=== PATIENT | female | born 1955 | race Caucasian/White ===

== ENCOUNTER 2017-09-05 10:38 | Outpatient (CLI) | payer BC, OTHER ==
--- NOTE | 2017-09-05 13:14 | MMO ---
BILATERAL SCREENING MAMMOGRAMS: Date: 09/05/17 HISTORY: 62-year-old female patient presenting for screening mammography. This patient's mammogram was interpreted with the assistance of computer-aided detection. COMPARISON: 08/10/16, 07/29/15, 07/14/14, and 07/01/13. FINDINGS: Scattered fibroglandular densities are seen in each breast. There is a stable benign-appearing calci fication seen in the left breast. No dominant mass or suspicious grouping of microcalcifications are seen in either breast. IMPRESSION: BIRADS 2: Benign Finding(s) Routine annual mammographic screening is recommended. POS: DAWIT
== END 2017-09-05 10:39 | disposition home or self-care (01) ==
LOC: SCSMAMMO 10:38
PROVIDERS: ATTEND Obstetrics & Gynecology
DX: Z12.31 Encounter for screening mammogram for malignant neoplasm of breast (principal)
CPT/HCPCS: 77067

== ENCOUNTER 2017-09-05 14:33 | Outpatient (CLI) | payer BC | END 2017-09-05 14:34 | disposition home or self-care (01) | LOC: BICMAMMO 14:33 | PROVIDERS: ATTEND Obstetrics & Gynecology | DX: Z13.820 Encounter for screening for osteoporosis (principal) | CPT/HCPCS: 77080 ==

== ENCOUNTER 2018-09-05 10:12 | Outpatient (CLI) | payer BC ==
--- NOTE | 2018-09-05 11:10 | MMO ---
BILATERAL SCREENING MAMMOGRAM: DATE: 09/05/18 HISTORY: 63-year-old female for screening mammography. COMPARISON: 09/05/17, 08/10/16. FINDINGS: Bilateral MLO and CC views of the breasts show predominantly fatty replaced breast parenchyma. A mckenna gn-appearing calcification is seen in the subareolar region of the left breast. There is no evidence of suspicious mass, suspicious cluster of microcalcifications, or area of architectural distortion. Interpretation of this mammogram was performed with the assistance of computer-aided detection. IMPRESSION: BIRADS 2: Benign Finding(s) Annual screening mammography is recommended. POS: DAWIT
== END 2018-09-05 10:13 | disposition home or self-care (01) ==
LOC: SCSMAMMO 10:12
PROVIDERS: ATTEND Obstetrics & Gynecology
DX: Z12.31 Encounter for screening mammogram for malignant neoplasm of breast (principal)
CPT/HCPCS: 77067

== ENCOUNTER 2020-07-31 08:18 | Inpatient (IN) | payer BC ==
[2020-07-31] MEDS ORDERED: Ondansetron PF 4 MG/2 ML Vial ONE (08:55)
[2020-07-31] MEDS ORDERED: Morphine 4 MG/ML VIAL ONE (08:55)
[2020-07-31 09:03] LABS: #Lymphocytes 1.4 thou/uL (1.20-3.40); #Neutrophils 11.4 thou/uL (1.40-6.50); %Basophils 0.2 % (0.0-1.0); %Neutrophils 82.8 % (42.0-75.0); Hemoglobin 13.1 g/dL (12.0-16.0); Mean Corpuscular Hemoglobin 29.6 pg (27.0-31.0); Mean Corpuscular Volume 87.1 fL (78.0-98.0); Mean Platelet Volume 7.6 fL (7.4-10.4); Platelet Count 275 thou/uL (130-400); Red Blood Cell (RBC) Count 4.43 mill/uL (4.20-5.40); White Blood Cell (WBC) Count 13.8 thou/uL (4.8-10.8)
[2020-07-31 09:25] LABS: ALT (SGPT) 7 U/L (8-55); AST (SGOT) 13 U/L (5-34); Albumin 4.1 g/dL (3.4-4.8); Alkaline Phosphatase 114 U/L (40-110); Anion Gap 16 mmol/L (10-20); BUN (Urea Nitrogen) 12 mg/dL (9.8-20.1); Bilirubin, Total 1.1 mg/dL (0.2-1.2); Calc. Creatinine Clearance 0 mL/min (70-130); Calcium 9.4 mg/dL (7.8-10.44); Carbon Dioxide 25 mmol/L (23-31); Chloride 102 mmol/L (98-107); Glucose 135 mg/dL (80-115); Lipase 11 U/L (8-78); Potassium 3.6 mmol/L (3.5-5.1); Protein, Total 7.1 g/dL (6.0-8.3); Sodium 139 mmol/L (136-145)
[2020-07-31 09:40] LABS: Bacteria/HPF None Seen HPF (None Seen); Bilirubin Negative (Negative); Blood, Urine Trace (Negative); Clarity Clear (Clear); Glucose, Urine (Dipstick) Normal (Negative); Ketone, Urine Trace mg/dL (Negative); Leukocyte Negative Leu/uL (Negative); Nitrite Negative (Negative); Protein, Urine (Dipstick) 30 mg/dL (Neg-Trace); RBC/HPF 0-3 HPF (0-3); Specific Gravity, Urine 1.032 (1.002-1.036); Squamous Epithelial 0-3 HPF (0-3); Urobilinogen Normal mg/dL (Less than 2); pH, Urine 5.5 (5.0-9.0)
[2020-07-31] MEDS ORDERED: Piperacillin/Tazobactam 4.5 GM VIAL ONE (09:52)
[2020-07-31] MEDS ORDERED: Sodium Chloride 0.9% 100 ML ONE (09:52)
--- NOTE | 2020-07-31 10:11 | ULT ---
RIGHT UPPER QUADRANT ABDOMINAL ULTRASOUND: Date: 07/31/2020 COMPARISON: None. HISTORY: Abdominal pain. TECHNIQUE: Multiplanar Beckwith scale and color Doppler images were obtained in a right upper quadrant abdominal ult rasound. FINDINGS: The liver is normal in echogenicity without focal lesions or intrahepatic ductal dilatation. There is a large nonmobile gallstone in the gallbladder neck. The gallbladder is distended. No gallbladder wa ll thickening or pericholecystic fluid seen. The common bile duct is normal measuring 2.0 mm. The pancreatic duct is prominent measuring 5.0 mm. No obvious pancreatic mass is seen. The right kidn ey is normal in echogenicity without hydronephrosis or calculus and measures 10.3 cm in length. IMPRESSION: 1. Cholelithiasis. 2. Nonspecific prominence in the pancreatic duct. POS: EAA
[2020-07-31] MEDS ORDERED: Promethazine HCl 25 MG/ML VIAL IM PRN (11:24)
[2020-07-31] MEDS ORDERED: Calcium Carbonate 500 MG ChewTAB PO PRN (11:24)
[2020-07-31] MEDS ORDERED: Dextrose 5% in Water 1,000 ML IV PRN (11:24)
[2020-07-31] MEDS ORDERED: Mag-Al 1200 mg/1200 mg/30 ML UDCUP PO PRN (11:24)
[2020-07-31] MEDS ORDERED: hydrALAZINE 20 MG/ML VIAL SLOW IVP PRN (11:24)
[2020-07-31] MEDS ORDERED: Ondansetron PF 4 MG/2 ML Vial IVP PRN (11:24)
[2020-07-31] MEDS ORDERED: Morphine 4 MG/ML VIAL SLOW IVP PRN (11:24)
[2020-07-31] MEDS ORDERED: Dextrose 50% Abboject 50 ML SYRINGE SLOW IVP PRN (11:24)
[2020-07-31] MEDS ORDERED: Albuterol 200 PUFF (6.7GM INHALER) INH PRN (11:35)
[2020-07-31 12:02] LABS: Lactic Acid 1.5 mmol/L (0.5-2.2)
--- NOTE | 2020-07-31 12:02 | HP ---
CHIEF COMPLAINT: Right upper quadrant abdominal pain. HISTORY: A 65-year-old female with a 3-week history of right upper quadrant pain, intermittent at that time, worse after eating spicy fatty food. Yesterday afternoon after lunch, she developed severe episode of this pain, which is persisted, associated with nausea and dry heaves as well as some fever. PAST MEDICAL HISTORY: Left bundle branch block, history of obesity. PAST SURGICAL HISTORY: She had a sleeve gastrectomy 5 years ago, hiatal hernia repair at that time, tonsil and adenoidectomy, and a forehead lift. MEDICATIONS: She is on no medications. ALLERGIES: NO KNOWN DRUG ALLERGIES. SOCIAL HISTORY: She is . No tobacco. Rare alcohol. FAMILY HISTORY: Diabetes, heart disease, and strokes. PHYSICAL EXAMINATION: VITAL SIGNS: She is afebrile. Pulse 85, blood pressure 115/52. GENERAL: She is awake, alert, in no apparent distress. HEENT: No jaundice. LUNGS: Clear. HEART: Regular rate and rhythm. ABDOMEN: Soft, very tender in the right upper quadrant. She has some well-healed laparoscopic scars. EXTREMITIES: Unremarkable. LABORATORY DATA: White count is 13.8, hemoglobin and hematocrit are 13 and 38, and platelet count 275. Electrolytes are fine. Alkaline phosphatase is little elevated at 114. Ultrasound shows large stone impacted in the gallbladder neck, normal common bile duct. ASSESSMENT: Severe biliary colic. PLAN: Admit. Laparoscopic cholecystectomy in the morning. We will check COVID test. Job ID: [id number]
[2020-07-31 12:36] LABS: SARS-CoV-2 NAA Rapid Test Not Detected (NotDetected)
[2020-07-31] MEDS: D5 1/2 NS w/20 mEq KCL 1,000 ML IV SCH (14:32)
[2020-07-31 14:40] VITALS: BMI 32.1
[2020-07-31] MEDS: Piperacillin/Tazobactam 3.375 GM in Sodium Chloride 0.9% 100 ML IVPB SCH ×2 (17:06→22:43)
[2020-07-31] MEDS ORDERED: Acetaminophen 325 MG TAB PO PRN (19:49)
[2020-07-31] MEDS: Morphine 2 MG/ML VIAL SLOW IVP PRN (19:58)
[2020-07-31] MEDS: Famotidine/PF 20 mg/2ml Vial SLOW IVP SCH (19:59)
[2020-07-31] MEDS: Famotidine 20 MG TAB PO SCH (22:43)
[2020-08-01] MEDS: Morphine 2 MG/ML VIAL SLOW IVP PRN ×2 (01:00→05:59)
[2020-08-01] MEDS: Piperacillin/Tazobactam 3.375 GM in Sodium Chloride 0.9% 100 ML IVPB SCH ×4 (03:34→22:34)
[2020-08-01] MEDS: D5 1/2 NS w/20 mEq KCL 1,000 ML IV SCH ×2 (03:40→21:19)
[2020-08-01 06:03] LABS: #Lymphocytes 2.1 thou/uL (1.20-3.40); #Monocytes 1.2 thou/uL (0.11-0.59); #Neutrophils 14.2 thou/uL (1.40-6.50); %Basophils 0.1 % (0.0-1.0); %Eosinophils 0.1 % (0.0-10.0); %Lymphocytes 12.1 % (21.0-51.0); %Neutrophils 80.6 % (42.0-75.0); Hemoglobin 12.2 g/dL (12.0-16.0); Mean Corpuscular Hemoglobin 29.3 pg (27.0-31.0); Mean Platelet Volume 7.6 fL (7.4-10.4); Platelet Count 244 thou/uL (130-400); RBC Distribution Width 12.1 % (11.5-14.5); Red Blood Cell (RBC) Count 4.16 mill/uL (4.20-5.40); White Blood Cell (WBC) Count 17.6 thou/uL (4.8-10.8)
[2020-08-01 06:24] LABS: ALT (SGPT) 229 U/L (8-55); AST (SGOT) 182 U/L (5-34); Albumin 3.6 g/dL (3.4-4.8); Alkaline Phosphatase 156 U/L (40-110); Anion Gap 15 mmol/L (10-20); BUN (Urea Nitrogen) 13 mg/dL (9.8-20.1); Bilirubin, Total 3.1 mg/dL (0.2-1.2); Calc. Creatinine Clearance 99 mL/min (70-130); Calcium 8.8 mg/dL (7.8-10.44); Carbon Dioxide 23 mmol/L (23-31); Chloride 104 mmol/L (98-107); Globulin 2.8 g/dL (2.4-3.5); Glucose 121 mg/dL (80-115); Lipase 10 U/L (8-78); Potassium 3.8 mmol/L (3.5-5.1); Protein, Total 6.4 g/dL (6.0-8.3); Sodium 138 mmol/L (136-145)
[2020-08-01] MEDS ORDERED: Fentanyl 100 MCG/2 ML VIAL ONE ×2 (09:42→12:41)
[2020-08-01] MEDS ORDERED: Sodium Chloride 0.9% 100 ML ONE (09:43)
[2020-08-01] MEDS ORDERED: Piperacillin/Tazobactam 3.375 GM VIAL ONE (09:43)
[2020-08-01] MEDS ORDERED: Bupivacaine 0.25% HCL 30 ML VIAL ONE (11:42)
[2020-08-01] MEDS ORDERED: Lidocaine 1% w/Epinephrine 1:100K 20 ML VIAL ONE (11:42)
[2020-08-01] MEDS ORDERED: Midazolam HCl 2 mg/2 ml Vial ONE (12:41)
[2020-08-01] MEDS ORDERED: Iothalamate Meglumine 60% 50 ML VIAL FS ONE (13:28)
--- NOTE | 2020-08-01 13:58 | RAD ---
OPERATIVE CHOLANGIOGRAM: 08/01/20 A single fluoroscopic image is presented from the OR. INDICATIONS: Cholangiogram during laparoscopic cholecystectomy. FINDINGS/IMPRESSION: This single view shows opacification of the common bile duct. No filling defect identified. POS: AGW
[2020-08-01] MEDS ORDERED: Calcium Carbonate 500 MG ChewTAB PO PRN (14:15)
[2020-08-01] MEDS ORDERED: Promethazine HCl 25 MG/ML VIAL IM PRN ×2 (14:15→14:28)
[2020-08-01] MEDS ORDERED: Dextrose 50% Abboject 50 ML SYRINGE SLOW IVP PRN (14:15)
[2020-08-01] MEDS ORDERED: Morphine 2 MG/ML VIAL SLOW IVP PRN (14:15)
[2020-08-01] MEDS ORDERED: Dextrose 5% in Water 1,000 ML IV PRN (14:15)
[2020-08-01] MEDS ORDERED: hydrALAZINE 20 MG/ML VIAL SLOW IVP PRN (14:15)
[2020-08-01] MEDS ORDERED: Morphine 4 MG/ML VIAL SLOW IVP PRN (14:15)
[2020-08-01] MEDS ORDERED: Ondansetron PF 4 MG/2 ML Vial IVP PRN (14:15)
[2020-08-01] MEDS ORDERED: Mag-Al 1200 mg/1200 mg/30 ML UDCUP PO PRN (14:15)
[2020-08-01] MEDS ORDERED: HYDROcodone/Acetaminophen 10/325 mg Tablet PO PRN ×2 (14:15)
[2020-08-01] MEDS ORDERED: SUGAMMADEX SODIUM 200 MG/2 ML VIAL ONE (14:16)
[2020-08-01] MEDS ORDERED: Ondansetron HCl/PF 4 MG/2 ML Vial IVP PRN (14:28)
[2020-08-01] MEDS ORDERED: HYDROmorphone 2 MG/ML VIAL SLOW IVP PRN (14:28)
[2020-08-01] MEDS ORDERED: Morphine Sulfate 2 MG/ML SYRINGE SLOW IVP PRN (14:28)
[2020-08-01] MEDS ORDERED: Meperidine HCl/PF 25 MG/ML VIAL SLOW IVP PRN (14:28)
[2020-08-01] MEDS ORDERED: PACU-Morphine 4MG/ML VIAL SLOW IVP PRN (14:28)
--- NOTE | 2020-08-01 14:36 | OP ---
DATE OF PROCEDURE: 08/01/2020 PREOPERATIVE DIAGNOSIS: Acute cholecystitis. PROCEDURE PERFORMED: Laparoscopic cholecystectomy with intraoperative cholangiogram. INDICATIONS: This is a 65-year-old female with severe right upper quadrant pain radiating to the back, went to the emergency room. CT showed distended gallbladder with impacted gallstone in her neck consistent with acute cholecystitis. FINDINGS: Gangrenous gallbladder containing pus, somewhat necrotic. Cholangiogram was negative. DESCRIPTION OF PROCEDURE: After informed consent was obtained, the patient was taken to the operating room and given general endotracheal anesthesia, placed in the supine position. Abdomen was prepped and draped in usual fashion. Local anesthesia was infiltrated subcutaneously and deep. A subumbilical incision was performed. Subcu divided sharply. The fascia was grasped and 2 stay sutures of 0 Vicryl placed through each side of midline. Midline incised. Digital palpation revealed no local adhesions. A blunt 12 mm trocar inserted. Pneumoperitoneum was created to a pressure of 15 mmHg. A 0-degree laparoscope inserted under direct vision, three 5-mm ports were placed subcostally. The gallbladder was encased with omentum. This was taken down bluntly to reveal a very inflamed gallbladder that was distended. The aspirating needle was inserted and 90 mL of purulent fluid removed. This was sent for culture and sensitivity. The gallbladder grasped, advanced superiorly. The peritoneum lysed distally to expose the cystic duct and artery. A clip was placed on the cystic duct at the gallbladder and an incision made in the cystic duct. An Arrow cholangiocatheter inserted. An intraoperative cholangiogram was performed utilizing fluoroscopy showing free flow into the duodenum and no filling defects. The duct was triply ligated with hemoclips and divided. The artery was dissected out, triply ligated and divided. The gallbladder removed from its fossa utilizing electrocautery. It was placed in an endosac and removed from the abdomen in the endosac. Hemostasis achieved with electrocautery and Triny powder. A drain was placed and brought out through the lateral-most incision and placed in the subhepatic space. Hemostasis assured. Trocars and retractors removed. The fascia closed with interrupted 0 Vicryl suture. The skin closed with interrupted 4-0 Rapide. Dermabond applied. The patient tolerated the procedure well, transferred to Recovery in good condition. Sponge and needle count verified correct x2. Job ID: [id number]
[2020-08-01] MEDS ORDERED: Piperacillin/Tazobactam 3.375 GM in Sodium Chloride 0.9% 100 ML IVPB SCH (18:00)
[2020-08-01] MEDS ORDERED: Ketorolac Tromethamine 30 MG/ML VIAL IVP SCH (18:00)
[2020-08-01] MEDS: Sodium Chloride 0.9% 1,000 ML IV SCH ×2 (18:04→20:38)
[2020-08-01] MEDS: Famotidine/PF 20 mg/2ml Vial SLOW IVP SCH ×2 (18:04→21:08)
[2020-08-01] MEDS: Famotidine 20 MG TAB PO SCH ×2 (18:04→20:38)
[2020-08-01] MEDS: Ketorolac Tromethamine 30 MG/ML VIAL IVP SCH (19:10)
[2020-08-01] MEDS ORDERED: Famotidine/PF 20 mg/2ml Vial SLOW IVP SCH (21:00)
[2020-08-01] MEDS ORDERED: Famotidine 20 MG TAB PO SCH (21:00)
[2020-08-02] MEDS: Ketorolac Tromethamine 30 MG/ML VIAL IVP SCH ×4 (01:23→21:51)
[2020-08-02] MEDS: Piperacillin/Tazobactam 3.375 GM in Sodium Chloride 0.9% 100 ML IVPB SCH ×4 (03:57→21:50)
[2020-08-02] MEDS: Sodium Chloride 0.9% 1,000 ML IV SCH ×3 (06:50→23:47)
[2020-08-02 08:48] LABS: ALT (SGPT) 126 U/L (8-55); AST (SGOT) 50 U/L (5-34); Albumin 3.1 g/dL (3.4-4.8); Alkaline Phosphatase 117 U/L (40-110); Anion Gap 12 mmol/L (10-20); BUN (Urea Nitrogen) 17 mg/dL (9.8-20.1); Calc. Creatinine Clearance 106 mL/min (70-130); Calcium 8.7 mg/dL (7.8-10.44); Carbon Dioxide 23 mmol/L (23-31); Chloride 108 mmol/L (98-107); Globulin 2.6 g/dL (2.4-3.5); Glucose 117 mg/dL (80-115); Lipase 6 U/L (8-78); Potassium 3.9 mmol/L (3.5-5.1); Protein, Total 5.7 g/dL (6.0-8.3); Sodium 139 mmol/L (136-145)
[2020-08-02 08:52] LABS: Band 13 % (5-11); Hemoglobin 10.4 g/dL (12.0-16.0); Lymphocytes 8 % (21-51); MDiff Complete? YES; Mean Corpuscular HGB CONC 33.5 g/dL (32.0-36.0); Mean Corpuscular Hemoglobin 29.9 pg (27.0-31.0); Mean Corpuscular Volume 89.4 fL (78.0-98.0); Mean Platelet Volume 8.1 fL (7.4-10.4); Monocytes 8 % (0-10); Neutrophil 71 % (42-75); Platelet Count 196 thou/uL (130-400); RBC Distribution Width 11.8 % (11.5-14.5); Red Blood Cell (RBC) Count 3.48 mill/uL (4.20-5.40); White Blood Cell (WBC) Count 14.2 thou/uL (4.8-10.8)
[2020-08-02] MEDS: Enoxaparin Sodium 40 MG/0.4 ML SYRINGE SC SCH (10:24)
[2020-08-02] MEDS: Famotidine/PF 20 mg/2ml Vial SLOW IVP SCH ×2 (10:25→23:27)
[2020-08-02] MEDS: Famotidine 20 MG TAB PO SCH ×2 (10:25→21:51)
--- NOTE | 2020-08-02 12:58 | PRG ---
DATE OF SERVICE: 08/02/2020 SUBJECTIVE: The patient states pain is improving. No nausea or vomiting. She has not passed anything out of bottom since surgery. OBJECTIVE: VITAL SIGNS: Her temperature is 98.9, pulse 60, blood pressure 116/75. The drain output is 130 from her MABEL, urine output is okay. GENERAL: She is awake, alert. LABORATORY DATA: Her white count is 14, H and H 10 and 31, and platelet count 196. Her bilirubin is down to 1. Microbiology, she is growing a gram-negative javier. ASSESSMENT: Gangrenous cholecystitis. PLAN: Continue antibiotics. Try some full liquids. Job ID: [id number]
[2020-08-03] MEDS: Piperacillin/Tazobactam 3.375 GM in Sodium Chloride 0.9% 100 ML IVPB SCH ×2 (03:01→08:57)
[2020-08-03] MEDS: Ketorolac Tromethamine 30 MG/ML VIAL IVP SCH ×3 (03:01→15:10)
[2020-08-03] MEDS: Sodium Chloride 0.9% 1,000 ML IV SCH (08:47)
[2020-08-03] MEDS: Famotidine 20 MG TAB PO SCH (08:47)
[2020-08-03] MEDS: Famotidine/PF 20 mg/2ml Vial SLOW IVP SCH (08:49)
[2020-08-03] MEDS: Enoxaparin Sodium 40 MG/0.4 ML SYRINGE SC SCH (10:37)
[2020-08-03 12:07] VITALS: BP 114/73; TEMP 97.8
--- NOTE | 2020-08-04 04:40 | DIS ---
DATE OF ADMISSION: 07/31/2020 DATE OF DISCHARGE: 08/03/2020 DISCHARGE DIAGNOSIS: Acute cholecystitis. PROCEDURES DURING ADMISSION: Laparoscopic cholecystectomy with intraoperative cholangiogram. HOSPITAL COURSE: The patient was admitted, given IV antibiotics, taken to the operating room where she underwent a laparoscopic cholecystectomy and cholangiogram. Postoperatively, she has done well. Drains have been removed. She is tolerating a regular diet. She has had a couple of loose stools. She is afebrile. She is discharged home on hydrocodone, Zofran, and ciprofloxacin as her cultures grew out Klebsiella pneumonia. She will follow up with me in 2 weeks. Job ID: [id number]
== END 2020-08-03 15:13 | disposition home or self-care (01) | DRG 419 ==
LOC: ERS 08:18 → SURG A 13:54
PROVIDERS: ADMIT Surgery; ATTEND Surgery
PROC: 0FT44ZZ Resection of Gallbladder, Percutaneous Endoscopic Approach (ICD-10-PCS; principal; 2020-08-01)
PROC: BF101ZZ Fluoroscopy of Bile Ducts using Low Osmolar Contrast (ICD-10-PCS; 2020-08-01)
DX: K80.00 Calculus of gallbladder with acute cholecystitis without obstruction (principal); K82.A1 Gangrene of gallbladder in cholecystitis; B96.1 Klebsiella pneumoniae [K. pneumoniae] as the cause of diseases classified elsewhere; Z20.828 Contact with and (suspected) exposure to other viral communicable diseases; E66.9 Obesity, unspecified; Z68.32 Body mass index [BMI] 32.0-32.9, adult; Z90.49 Acquired absence of other specified parts of digestive tract; Z83.3 Family history of diabetes mellitus; Z82.3 Family history of stroke; Z82.49 Family history of ischemic heart disease and other diseases of the circulatory system; Z98.84 Bariatric surgery status; Z91.09 Other allergy status, other than to drugs and biological substances
CPT/HCPCS: 36415; 47532; 76705; 80053; 81003; 81015; 83605; 83690; 84484; 85025; 87040; 87070; 87077; 87186; 87205; 88304; 93005; 96365; 96375; J1650; J1885; J2250; J2270; J2405; J2543; J3010; J3480; J3490; S0020; S0028; U0002

== ENCOUNTER 2024-01-04 08:41 | Outpatient (CLI) | payer MEDICARE | END 2024-01-04 08:42 | disposition home or self-care (01) | LOC: BICMAMMO 08:41 | PROVIDERS: ATTEND Obstetrics & Gynecology | DX: Z13.820 Encounter for screening for osteoporosis (principal); Z78.0 Asymptomatic menopausal state | CPT/HCPCS: 77080 ==